=== PATIENT | male | born 1990 | race Caucasian/White ===

== ENCOUNTER 2017-03-26 11:00 | Emergency (ER) | payer OTHER ==
[2017-03-26 11:12] VITALS: BP 152/65; PULSE 63; RESP 17; TEMP 97.4
--- NOTE | 2017-03-26 11:29 | ED ---
URI HPI - General Chief Complaint: Upper Respiratory Infection Stated Complaint: Congested Time Seen by Provider: 03/26/17 11:16 Source: patient Mode of arrival: ambulatory Limitations: no limitations - History of Present Illness Initial Comments: Patient is a 26-year-old healthy male presents with a chief complaint of cough and congestion for 3 days. The patient states that he has a roommate at home was pneumonia. Patient states that he has a productive cough that is producing yellowish-green sputum. He mildly sore throat as well. Aggravating factors are cold air. There are no alleviating factors. Timing is constant. - Related Data Previous Rx's Medication Instructions Recorded Acetaminophen-Codeine 300-30mg 1 tab PO Q4H PRN #20 tablet 01/18/16 [Tylenol #3] Penicillin V Potassium [Pen Vee K] 500 mg PO QID #40 tab 01/18/16 Azithromycin [Zithromax Z-pack] 250 mg PO DIRECTED #6 tab 03/26/17 predniSONE 50 mg PO DAILY #5 tablet 03/26/17 Allergies Allergy/AdvReac Type Severity Reaction Status Date / Time venom-honey bee Allergy Unknown Verified 03/26/17 11:11 [bee venom (honey bee)] Review of Systems ROS Statement: Those systems with pertinent positive or pertinent negative responses have been documented in the HPI. ROS Other: All systems not noted in ROS Statement are negative. Constitutional: Denies: fever ENT: Reports: throat pain Respiratory: Reports: cough, dyspnea Cardiovascular: Denies: chest pain Endocrine: Denies: fatigue Gastrointestinal: Denies: abdominal pain, nausea, vomiting Neurological: Denies: headache Past Medical History Past Medical History: No Reported History History of Any Multi-Drug Resistant Organisms: None Reported Past Surgical History: No Surgical Hx Reported Past Psychological History: ADD/ADHD, Anxiety, Bipolar, Depression Smoking Status: Current every day smoker Past Alcohol Use History: None Reported Past Drug Use History: None Reported General Exam Limitations: no limitations General appearance: alert, in no apparent distress Head exam: Present: atraumatic, normocephalic Eye exam: Present: PERRL ENT exam: Present: other (Patient has erythematous oropharynx with postnasal drip.) Neck exam: Present: lymphadenopathy Respiratory exam: Present: normal lung sounds bilaterally. Absent: respiratory distress Cardiovascular Exam: Present: regular rate, normal rhythm GI/Abdominal exam: Present: soft. Absent: distended, tenderness Rectal exam: Present: deferred Neurological exam: Present: alert, oriented X3, normal gait Psychiatric exam: Present: normal affect, normal mood Course Vital Signs 03/26/17 11:10 Temperature 97.4 F L Pulse Rate 63 Respiratory 17 Rate Blood Pressure 152/65 O2 Sat by Pulse 98 Oximetry Medical Decision Making - Medical Decision Making Patient presents with 3 days of cough and congestion. He has a productive cough. There is a sick contact at home, his roommate, was diagnosed with pneumonia. Patient was placed on azithromycin and prednisone for 5 days. Patient's vital signs are stable, he is afebrile. He is in no acute distress. At this time, patient is stable for discharge and close follow-up with primary care. Disposition Clinical Impression: Bronchitis Disposition: HOME SELF-CARE Condition: Good Instructions: Upper Respiratory Infection (ED) Prescriptions: Azithromycin [Zithromax Z-pack] 250 mg PO DIRECTED #6 tab predniSONE 50 mg PO DAILY #5 tablet Referrals: None,Stated [Primary Care Provider] - 1-2 days Suma Garibay MD [STAFF PHYSICIAN] - 1-2 days
== END 2017-03-26 11:46 | disposition home or self-care (01) ==
LOC: EC 11:00
DX: J40 Bronchitis, not specified as acute or chronic (principal); F17.200 Nicotine dependence, unspecified, uncomplicated; Z91.030 Bee allergy status
CPT/HCPCS: 99283

== ENCOUNTER 2017-06-01 22:49 | Emergency (ER) | payer SELFPAY ==
--- NOTE | 2017-06-01 23:41 | ED ---
Lower Extremity Injury HPI - General Chief Complaint: Extremity Injury, Lower Stated Complaint: fluid rt knee Time Seen by Provider: 06/01/17 23:30 Source: patient, RN notes reviewed, old records reviewed Mode of arrival: ambulatory Limitations: no limitations - History of Present Illness Initial Comments: This is a 26-year-old male presents emergency department today chief complaint of right knee pain. 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 He reports over the past 2 weeks since become increasingly swollen on the right knee. He states that he has pain with ambulation however that has been chronic. Denies any numbness or tingling. - Related Data Previous Rx's Medication Instructions Recorded Azithromycin [Zithromax Z-pack] 250 mg PO DIRECTED #6 tab 03/26/17 predniSONE 50 mg PO DAILY #5 tablet 03/26/17 Ibuprofen [Motrin] 800 mg PO TID #20 tab 06/02/17 Allergies Allergy/AdvReac Type Severity Reaction Status Date / Time venom-honey bee Allergy Unknown Verified 03/26/17 11:44 [bee venom (honey bee)] Review of Systems ROS Statement: Those systems with pertinent positive or pertinent negative responses have been documented in the HPI. ROS Other: All systems not noted in ROS Statement are negative. Past Medical History Past Medical History: No Reported History History of Any Multi-Drug Resistant Organisms: None Reported Past Surgical History: No Surgical Hx Reported Past Psychological History: ADD/ADHD, Anxiety, Bipolar, Depression Smoking Status: Current every day smoker Past Alcohol Use History: Occasional Past Drug Use History: Marijuana General Exam - General Exam Comments Initial Comments: This is a pleasant 26 year old male, no distress. Limitations: no limitations General appearance: alert, in no apparent distress Head exam: Present: atraumatic, normocephalic, normal inspection Eye exam: Present: normal appearance, PERRL, EOMI. Absent: scleral icterus, conjunctival injection, periorbital swelling ENT exam: Present: normal exam, mucous membranes moist Neck exam: Present: normal inspection. Absent: tenderness, meningismus, lymphadenopathy Respiratory exam: Present: normal lung sounds bilaterally. Absent: respiratory distress, wheezes, rales, rhonchi, stridor Cardiovascular Exam: Present: regular rate, normal rhythm, normal heart sounds. Absent: systolic murmur, diastolic murmur, rubs, gallop, clicks GI/Abdominal exam: Present: soft, normal bowel sounds. Absent: distended, tenderness, guarding, rebound, rigid Extremities exam: Present: normal inspection, full ROM, normal capillary refill , other (right knee has evidence of brusitis, full ROM noted. No laxity. No significant warmth or erythema to the knee. No exoriations. ). Absent: tenderness, pedal edema, joint swelling, calf tenderness Back exam: Present: normal inspection Psychiatric exam: Present: normal affect, normal mood Skin exam: Present: warm, dry, intact, normal color. Absent: rash Course Vital Signs 06/01/17 06/02/17 23:01 00:23 Temperature 98.0 F 98.6 F Pulse Rate 64 56 L Respiratory 17 15 Rate Blood Pressure 121/55 127/47 O2 Sat by Pulse 98 98 Oximetry Procedures - Joint Aspiration/Injection Consent Obtained: verbal consent Time Out Performed: Yes Indications: to relieve pressure/pain Side of Body: right Joint Aspirated: knee Ultrasound Guidance: No Skin Prep: sterile prep and drape Local Anesthesia Used: Lidocaine 1% Amount of Anesthesia Used (mLs): 5 Needle Size Used: 18G Syringe Size Used: 20cc Fluid Obtained: bloody Total Fluid Obtained (mls): 15 Patient Tolerated Procedure: well, no complications Complications: none Additional Comments: The tap was preformed by Dr. Tafoya . Medical Decision Making - Medical Decision Making This is a 26 year old male with Right knee pain and swelling worse for 2 weeks. 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 He has inferior patella bursitis. Xray shows soft tissue swelling consistent with bursitis. No fracture. Discussed with Dr. Tafoya. HE recommends and wants to procede with joint drainage. With sterile procedure, Dr. Tafoya used 18 gauge needle after local anesthetic to drain with bursitis. Approx 15cc of bloody fluid removed. Patient given KEO wrap and reports relief of pain after tap. Patient will follow up with orthopedic. Will send joint fluid to lab for analysis. Starting patietn on antiinflammatories, all questions answered and return parameters discussed. - Lab Data Lab Results 06/02/17 06/02/17 Range/Units 01:00 01:00 Fluid Source Synovial Fluid Color Red Fluid Appearance Bloody Fluid RBC 49463 /uL Fluid Nucleated Cells 178 /uL Fluid Polynuclear WBCs 21 % Fluid Mononuclear WBCs 79 % Synovial Source Right Knee - Radiology Data Radiology results: report reviewed Xray shows soft tissue swelling consistent with patellar brusitis. No fracture.. Disposition Clinical Impression: Knee bursitis Disposition: HOME SELF-CARE Condition: Good Instructions: Knee Bursitis (ED) Additional Instructions: This is advised to follow-up with orthopedic within the next 2-3 days. Return to the emergency department if any alarming signs symptoms occur. Rest, ice, and elevate extremity. Take antiinflammatory medication. Prescriptions: Ibuprofen [Motrin] 800 mg PO TID #20 tab Referrals: None,Stated [Primary Care Provider] - 1-2 days Kal Tenorio DO [Doctor of Osteopathic Medicine] - 1-2 days
--- NOTE | 2017-06-02 00:12 | XR ---
EXAMINATION TYPE: XR knee complete RT DATE OF EXAM: 06/01/2017 COMPARISON: NONE HISTORY: Pain TECHNIQUE: 3 views FINDINGS: There is soft tissue swelling anterior to the patella. I see no fracture nor dislocation. J oint spaces are normal. There is no sign of joint effusion. IMPRESSION: Soft tissue swelling consistent with patella bursitis. No fracture.
[2017-06-02 00:24] VITALS: BP 127/47; PULSE 56; RESP 15; TEMP 98.6
[2017-06-02 01:57] LABS: Appearance,BF Bloody; Color,BF Red; Nucleated Cells, Body Fluid 178 /uL; RBC, Body Fluid 23000 /uL
[2017-06-02 03:52] LABS: Mononuclear WBC,Body Fluid 79 %; Polynuclear WBC,Body Fluid 21 %; Total Cells Counted,Body Fluid 100
[2017-06-02 11:44] LABS: Total Protein, Body Fluid 3200 mg/dL
== END 2017-06-02 01:02 | disposition home or self-care (01) ==
LOC: EC 22:49
DX: M70.51 Other bursitis of knee, right knee (principal); F17.200 Nicotine dependence, unspecified, uncomplicated; Z91.030 Bee allergy status
CPT/HCPCS: 20610; 84157; 87070; 87205; 89050; 89060; 99284

== ENCOUNTER 2018-05-23 18:38 | Emergency (ER) | payer OTHER ==
[2018-05-23 19:08] VITALS: RESP 18
[2018-05-23] MEDS ORDERED: IBUPROFEN 800 MG TAB PO STA (19:30)
--- NOTE | 2018-05-23 20:08 | ED ---
General Adult HPI - General Chief complaint: Extremity Injury, Upper Stated complaint: Arm pain Time Seen by Provider: 05/23/18 19:10 Source: patient, RN notes reviewed Mode of arrival: ambulatory Limitations: no limitations - History of Present Illness Initial comments: 27-year-old male presents to the emergency department for a chief complaint of right arm pain times one week. Patient states he hit his elbow a week ago while trying to climb a ladder and has had pain radiating from his elbow up to his shoulder since that time. Patient states he also has a "tumor" in his right upper arm that he has not about for quite some time. He states that his mom and girlfriend have been telling him to get it checked out so he decided to come today to have it evaluated. Patient is not taking Motrin or Tylenol for pain. Patient denies any loss of sensation in the right arm. Denies any shooting pain from the neck down the arm. Denies any weakness in the right upper extremity. 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 Patient has no other complaints at this time including shortness of breath, chest pain, abdominal pain, nausea or vomiting, headache, or visual changes. - Related Data Previous Rx's Medication Instructions Recorded Azithromycin [Zithromax Z-pack] 250 mg PO DIRECTED #6 tab 03/26/17 predniSONE 50 mg PO DAILY #5 tablet 03/26/17 Ibuprofen [Motrin] 800 mg PO TID #20 tab 06/02/17 Allergies Allergy/AdvReac Type Severity Reaction Status Date / Time venom-honey bee Allergy Unknown Verified 05/23/18 19:05 [bee venom (honey bee)] Review of Systems ROS Statement: Those systems with pertinent positive or pertinent negative responses have been documented in the HPI. ROS Other: All systems not noted in ROS Statement are negative. Past Medical History Past Medical History: No Reported History History of Any Multi-Drug Resistant Organisms: None Reported Past Surgical History: No Surgical Hx Reported Past Psychological History: ADD/ADHD, Anxiety, Bipolar, Depression Smoking Status: Former smoker Past Alcohol Use History: Occasional Past Drug Use History: Marijuana General Exam Limitations: no limitations General appearance: alert, in no apparent distress Head exam: Present: atraumatic, normocephalic, normal inspection Eye exam: Present: normal appearance, PERRL, EOMI. Absent: scleral icterus, conjunctival injection, periorbital swelling ENT exam: Present: normal exam, mucous membranes moist Neck exam: Present: normal inspection, full ROM. Absent: tenderness, meningismus, lymphadenopathy Respiratory exam: Present: normal lung sounds bilaterally. Absent: respiratory distress, wheezes, rales, rhonchi, stridor Cardiovascular Exam: Present: regular rate, normal rhythm, normal heart sounds. Absent: systolic murmur, diastolic murmur, rubs, gallop, clicks Extremities exam: Present: full ROM (Full range of motion of the right shoulder , right elbow, right wrist. 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 Absent: tenderness (No significant tenderness noted throughout the right shoulder or right elbow.), pedal edema, joint swelling, calf tenderness Neurological exam: Present: alert, oriented X3, CN II-XII intact Psychiatric exam: Present: normal affect, normal mood Course Vital Signs 05/23/18 05/23/18 19:05 21:05 Temperature 98.6 F 97.5 F L Pulse Rate 65 55 L Respiratory 18 18 Rate Blood Pressure 121/79 121/64 O2 Sat by Pulse 97 98 Oximetry Medical Decision Making - Medical Decision Making 27-year-old male presents with Right upper arm pain after injury about one week ago. Full range of motion in all joints the right upper arm. Neurovascular intact. No erythema or edema noted of the right elbow or shoulder, no evidence of infection. X-ray of the right humerus is negative. Patient will follow-up with orthopedics and return here if he has any worsening symptoms. Disposition Clinical Impression: Arm pain, right Disposition: HOME SELF-CARE Condition: Good Instructions (If sedation given, give patient instructions): Arm Pain (ED) Additional Instructions: Please take Motrin and Tylenol for pain. Please follow-up with orthopedics in one to 2 days. Please follow-up with primary care as well. Return to the emergency department if you have any worsening symptoms. Is patient prescribed a controlled substance at d/c from ED?: No Referrals: Kevin Garcia MD [REFERRING] - 1-2 days Meek Garcia MD [Medical Doctor] - 1-2 days Time of Disposition: 20:50
--- NOTE | 2018-05-23 20:38 | XR ---
EXAMINATION TYPE: XR humerus RT DATE OF EXAM: 05/23/2018 CLINICAL HISTORY: History of cyst upper right arm with pain for 10 days. TECHNIQUE: Two views of the right humerus are obtained. COMPARISON: Prior right humerus x-ray December 05, 2004. FINDINGS: There is no acute fracture or dislocation seen in the right humerus. The right shoulder a nd elbow joints appear within normal limits. The overlying soft tissue appears within normal limits. IMPRESSION: Unremarkable study.
[2018-05-23 21:06] VITALS: BP 121/64; PULSE 55; TEMP 97.5
== END 2018-05-23 21:05 | disposition home or self-care (01) ==
LOC: EC 18:38
DX: M79.601 Pain in right arm (principal); M25.511 Pain in right shoulder; M79.621 Pain in right upper arm; M25.521 Pain in right elbow; D36.7 Benign neoplasm of other specified sites; Z87.891 Personal history of nicotine dependence; Z91.030 Bee allergy status; Z87.828 Personal history of other (healed) physical injury and trauma
CPT/HCPCS: 99283

== ENCOUNTER 2021-09-11 14:47 | Emergency (ER) | payer OTHER ==
[2021-09-11 15:30] VITALS: BP 132/86; PULSE 60; RESP 18; TEMP 97.8
[2021-09-11] MEDS ORDERED: PROPARACAINE 0.5% OPHTH DROPS 15 ML BTL RIGHT EYE STA (15:34)
[2021-09-11] MEDS ORDERED: FLUORESCEIN STRIPS 1 MG STRIP RIGHT EYE ONE (15:34)
--- NOTE | 2021-09-11 17:06 | ED ---
Eye Problem HPI - General Chief complaint: Eye Problems Stated complaint: Foreign object in R eye Time Seen by Provider: 09/11/21 15:33 Source: patient Mode of arrival: ambulatory Limitations: no limitations - History of Present Illness Initial comments: Patient is a 31-year-old male presenting with chief complaint of eye foreign body. Patient was cutting metal yesterday, and has had the sensation that "something is in my eye". His eye has become increasingly red, and he's been having increasing blurry vision. He does not wear contact lenses. He admits to some discomfort and itching. Denies discharge, photophobia. - Related Data Previous Rx's Medication Instructions Recorded Azithromycin [Zithromax Z-pack (6 250 mg PO DIRECTED #6 tab 03/26/17 tabs)] predniSONE 50 mg PO DAILY #5 tablet 03/26/17 Ibuprofen [Motrin] 800 mg PO TID #20 tab 06/02/17 Ciprofloxacin Ophth Soln [Cipro 2 drops RIGHT EYE QID 5 Days #5 ml 09/11/21 0.3% Ophth Soln] Allergies Allergy/AdvReac Type Severity Reaction Status Date / Time venom-honey bee Allergy Unknown Verified 09/11/21 15:27 [bee venom (honey bee)] Review of Systems ROS Statement: Those systems with pertinent positive or pertinent negative responses have been documented in the HPI. ROS Other: All systems not noted in ROS Statement are negative. Past Medical History Past Medical History: No Reported History History of Any Multi-Drug Resistant Organisms: None Reported Past Surgical History: No Surgical Hx Reported Past Psychological History: ADD/ADHD, Anxiety, Bipolar, Depression Smoking Status: Never smoker Past Alcohol Use History: Occasional Past Drug Use History: Marijuana General Exam Limitations: no limitations General appearance: alert, in no apparent distress Head exam: Present: atraumatic, normocephalic, normal inspection Eye exam: Present: PERRL, EOMI Expanded Sclera/Conjunctival: Injection: Right, Foreign Body: Right (Piece of metal with rust ring) ENT exam: Present: mucous membranes moist Neck exam: Present: normal inspection Extremities exam: Present: normal inspection Neurological exam: Present: alert, oriented X3, CN II-XII intact Psychiatric exam: Present: normal affect, normal mood Skin exam: Present: warm, dry, intact, normal color. Absent: rash Course Vital Signs 09/11/21 15:27 Temperature 97.8 F Pulse Rate 60 Respiratory 18 Rate Blood Pressure 132/86 O2 Sat by Pulse 97 Oximetry Procedures - Forgein Body Removal Eye Site: Right Location in eye(s): lateral edge Over the iris Anesthetic Used: Proparacaine Eye Exam Technique: Bowen Lamp, Slit Lamp Foreign Body Suspected: Metal Forgein Body Removal Technique: Needle Remaining Debris: Yes (Rust ring) Patient Tolerated: well Medical Decision Making - Medical Decision Making Patient is a 31-year-old male presenting with chief complaint of eye foreign body. Patient was cutting metal yesterday and has had foreign body sensation ever since. He admits to watering, redness, intermittent blurry vision, itching. On inspection there is foreign body seen over the lateral edge of the iris. Proparacaine eyedrops were used and removal was attempted with a damp cotton swab. This was unsuccessful. My attending Dr. Eli assisted me in removing the foreign body with the slit lamp and needle. A rust ring remained after removal. Eye was irrigated with normal saline. Patient was given Cipro eyedrops and instructed to follow-up with PCP in one to 2 days. Report back to ER if any new or worsening symptoms. Follow-up with PCP in one to 2 days. Discussed return parameters and answered all questions. Patient conveyed verbal understanding and agreed to the plan. I discussed this case with my attending Dr. Eli. Disposition Clinical Impression: Corneal abrasion, Corneal rust ring Disposition: HOME SELF-CARE Condition: Good Instructions (If sedation given, give patient instructions): Eye Foreign Body (ED), Abrasion (ED) Additional Instructions: Follow-up with PCP and ophthalmology in one to 2 days. Report back to ER with any new or worsening symptoms. Prescriptions: Ciprofloxacin Ophth Soln [Cipro 0.3% Ophth Soln] 2 drops RIGHT EYE QID 5 Days #5 ml Is patient prescribed a controlled substance at d/c from ED?: No Referrals: None,Stated [Primary Care Provider] - 1-2 days Dank Lima MD [STAFF PHYSICIAN] - 1-2 days Time of Disposition: 17:06
== END 2021-09-11 17:13 | disposition home or self-care (01) ==
LOC: EC 14:47
DX: S05.01XA Injury of conjunctiva and corneal abrasion without foreign body, right eye, initial encounter (principal); Z91.030 Bee allergy status; W26.8XXA Contact with other sharp object(s), not elsewhere classified, initial encounter
CPT/HCPCS: 65235; 99282